=== PATIENT | female | born 2000 | race Caucasian/White ===

== ENCOUNTER → 2020-11-25 | Emergency (ER) | payer MEDICAID ==
[~2020-11-25] VITALS: Ht 167.6 cm; Wt 52.2 kg
[~2020-11-25] MED LIST: CEPH500C2 PO
[2020-11-25 18:08] VITALS: BP 110/79
== END | disposition home or self-care (01) ==
LOC: ER 18:00
DX: S40.862A Insect bite (nonvenomous) of left upper arm, initial encounter (principal); S40.861A Insect bite (nonvenomous) of right upper arm, initial encounter; S80.862A Insect bite (nonvenomous), left lower leg, initial encounter; S80.861A Insect bite (nonvenomous), right lower leg, initial encounter; S30.861A Insect bite (nonvenomous) of abdominal wall, initial encounter; L03.90 Cellulitis, unspecified; W57.XXXA Bitten or stung by nonvenomous insect and other nonvenomous arthropods, initial encounter; Y93.89 Activity, other specified; Y92.830 Public park as the place of occurrence of the external cause; Y99.8 Other external cause status

== ENCOUNTER 2020-12-04 17:52 | Emergency (ER) | payer MEDICAID ==
[~2020-12-04] VITALS: Ht 167.6 cm; Wt 52.2 kg
[2020-12-04 18:07] VITALS: BP 111/90
[2020-12-04] MEDS ORDERED: PRED20TA PO (18:16)
[2020-12-04] MEDS ORDERED: CETI-90 PO (18:16)
[2020-12-04] MEDS ORDERED: CEPH500C2 PO (18:16)
[2020-12-04] MEDS ORDERED: TRIA15CR3 TP (18:16)
--- NOTE | 2020-12-04 18:22 | NUR ---
Patient discharged to home in stable condition. Written and verbal after care instructions given. Patient verbalizes understanding of instruction.
== END 2020-12-04 18:22 | disposition home or self-care (01) ==
LOC: ER 18:03
DX: T63.481A Toxic effect of venom of other arthropod, accidental (unintentional), initial encounter (principal); Y92.89 Other specified places as the place of occurrence of the external cause